=== PATIENT | female | born 1990 | race Asian ===

== ENCOUNTER 2021-04-11 10:39 | Emergency (ER) | payer OTHER ==
[~2021-04-11] VITALS: Ht 160 cm; Wt 49.9 kg
[2021-04-11 11:00] VITALS: BP_SYST 110
--- NOTE | 2021-04-11 11:00 | NUR ---
Patient to ER bed 7 to gown for evaluation. Side rails up.
--- NOTE | 2021-04-11 11:05 | NUR ---
Pt walked in to ER with c/o sore throat 610 x3 days. V/S stable, no acute distress noted.
--- NOTE | 2021-04-11 11:10 | NUR ---
ER Dr. Whaley at bedside examining patient.
[2021-04-11] MEDS ORDERED: PSEU120T57 PO (11:32)
[2021-04-11] MEDS ORDERED: PRED50TA PO (11:32)
[2021-04-11] MEDS ORDERED: IBUP-1969 PO (11:32)
--- NOTE | 2021-04-11 11:35 | NUR ---
Patient given written and verbal discharge instructions and verbalizes understanding. ER MD discussed with patient the results and treatment provided. Patient in stable condition. ID arm band removed. Rx of Motrin, Prednisone and Sudafed given. Patient educated on pain management and to follow up with PMD. Pain Scale 0. Opportunity for questions provided and answered. Medication side effect fact sheet provided.
[2021-04-11 11:38] VITALS: BP_SYST 110
== END 2021-04-11 11:35 | disposition home or self-care (01) ==
LOC: SED 10:39
DX: J02.9 Acute pharyngitis, unspecified (principal); J06.9 Acute upper respiratory infection, unspecified
CPT/HCPCS: 99283